=== PATIENT | female | born 1970 | race African-American/Black ===

== ENCOUNTER 2019-09-16 02:03 | Inpatient (IN) | payer MEDICARE, MEDICAID ==
[~2019-09-16] VITALS: Ht 165.1 cm; Wt 77.4 kg
[2019-09-16 02:43] LABS: Basophils # (auto) 0.1 10 ^3/uL (0-0.2); Basophils % (auto) 0.7 % (0.0-2.0); Eosinophils # (auto) 0.1 10 ^3/uL (0-0.8); Eosinophils % (auto) 0.7 % (0.0-7.0); Hematocrit 45.5 % (36.0-46.0); Hemoglobin 14.9 g/dL (12.2-16.2); Lymphocytes # (auto) 3.8 10 ^3/uL (0.4-5.4); Mean Corpuscular Hemoglobin 26.1 pg (28.0-32.0); Mean Corpuscular Hgb Conc. 32.7 g/dL (32.0-36.0); Mean Corpuscular Volume 79.7 fL (80.0-100.0); Monocytes # (auto) 0.6 10 ^3/uL (0-1.3); Monocytes % (auto) 5.8 % (0.0-12.0); Neutrophils # (auto) 5.3 10 ^3/uL (1.6-8.6); Neutrophils % (auto) 53.8 % (37.0-80.0); Nucleated Red Blood Cells % 0.1 %; Platelet Count (auto) 265 10^3/uL (140-450); Red Blood Cells 5.71 10^6/uL (4.0-5.20); Red Cell Distribution Width 14.1 % (11.8-14.3); White Blood Cell 9.8 10^3/uL (4.4-10.8)
[2019-09-16 03:01] LABS: Alanine Aminotransferase 29 U/L (13-56); Anion Gap 8 (5-15); Aspartate Aminotransferase 19 U/L (15-37); BUN/Creatinine Ratio 18.2; Blood Urea Nitrogen 14 mg/dL (7-18); Calcium 8.9 mg/dL (8.5-10.1); Carbon Dioxide 23 mmol/L (21-32); Chloride 105 mmol/L (98-107); GFR African American 102 mL/min; GFR Non-African American 85 mL/min; Glucose 84 mg/dL (74-106); Potassium 3.6 mmol/L (3.5-5.1); Sodium 136 mmol/L (136-145)
[2019-09-16 03:06] LABS: Alkaline Phosphatase 145 U/L (45-117); Bilirubin, Total 0.3 mg/dL (0.2-1.0); Total Protein 7.5 g/dL (6.4-8.2)
[2019-09-16 03:20] LABS: Urine WBC None Seen /hpf (0 - 5)
[2019-09-16 03:48] LABS: Urine Bacteria FEW /hpf (None Seen); Urine Blood Negative /uL (Negative); Urine Specific Gravity 1.008 (1.001-1.035)
[2019-09-16] MEDS ORDERED: ONDANSETRON HCL 4 MG/2 ML VIAL IV ONE (05:00)
[2019-09-16] MEDS ORDERED: MORPHINE SULFATE 4 MG/ML SYR/VIAL IV ONE (05:00)
[2019-09-16] MEDS ORDERED: LORazepam 0.5 MG TAB PO ONE (06:30)
[2019-09-16] MEDS ORDERED: NITROGLYCERIN 0.4 MG SL TAB SL PRN (07:00)
[2019-09-16] MEDS ORDERED: MORPHINE SULF INJ 2 MG/ML SYRINGE 1ML IV PRN (07:00)
[2019-09-16] MEDS ORDERED: TEMAZEPAM 15 MG CAP PO PRN (07:00)
[2019-09-16] MEDS ORDERED: ONDANSETRON HCL 4 MG/2 ML VIAL IV PRN (07:00)
[2019-09-16 07:09] LABS: Hematocrit 43.9 % (36.0-46.0); Hemoglobin 14.5 g/dL (12.2-16.2)
--- NOTE | 2019-09-16 09:03 | NUR ---
PT ADMITTED TO FLOOR VIA WHEEL CHAIR FROM E.R., NO DISTRESS NOTED. PT REPORTS NO CHEST PAIN AT THIS TIME, SHE REPORTS SHE RECEIVED PAIN MED IN E.R. SEIZURE PRECAUTIONS IN PLACE.BED IN LOWEST LOCKED POSITION, SIDE RAILS UP X 2. VITALS: 97.7, 98% ON RA, HR 73, RR 18, 105/70.
[2019-09-16] MEDS: ASPirin 81 mg TAB PO SCH (10:14)
[2019-09-16] MEDS: PHENYTOIN SODIUM 100 MG CAP PO SCH ×2 (10:14→21:56)
[2019-09-16] MEDS: TOPIRAMATE 25 MG TAB PO SCH ×2 (10:14→21:57)
[2019-09-16] MEDS: FAMOTIDINE 20 MG TAB PO SCH ×2 (10:14→21:57)
[2019-09-16 11:40] LABS: Cholesterol 156 mg/dL (< 200); HDL Cholesterol 79 mg/dL (40-59); LDL Cholesterol 45 mg/dL (< 100); Triglycerides 223 mg/dL (< 150)
--- NOTE | 2019-09-16 11:59 | NUR ---
PT REPORTING 11/24 CHEST PAIN RADIATING TO LEFT ARM. DR MORGAN CAME AND SAW PATIENT. PT REPORTS SHE IS BLEEDING FROM HER RECTUM AND DR MORGAN REPORTS HE WILL HAVE GI LOOK AT HER. PT REPORTS SHE WANTS PAIN MEDS. NOTIFIED DR MORGAN PT NEEDS PAIN MEDS ON BOARD, AWARE. NEW ORDERS FOR ECG, PT REFUSING VITALS. PT BECAME UPSET WHEN NOTIFIED AN ORDER IS NEEDED FOR MORE PAIN MEDICATION AND DR MORGAN IS AWARE. SHE REPORTS, "NO ONES TELLING ME WHAT'S GOING ON!" DR MORGAN JUST SPOKE WITH PATIENT AND EXPLAINED POC. PT UPSET AND REPORTS SHE WANTS PAIN MEDS, SHE WILL TAKE TYLENOL IF AVAILABLE, WILL CHECK TO SEE IF TYLENOL AVAILABLE. PT REPORTS SHE WANTS NEW NURSE, CHARGE AND DR MORGAN AWARE. Addendum: 09/16/19 at 1216 by SERGE SALDIVAR RN DR MORGAN SAW PATIENT AND WAS NOTIFIED OF CHEST PAIN.
--- NOTE | 2019-09-16 12:17 | NUR ---
BRANDON ASENCIO WITNESSED INCIDENT WITH PATIENT. PT REPORTS I WAS ARGUING WITH HER. PT EDUCATED AN ORDER IS NEEDED FOR PAIN MED, E.R. GAVE THE MORPHINE Q 30 AND NO OTHER MORPHINE AVAILABLE. PT YELLING AT SENIOR CHEMICAL PROCESS ENGINEER AT NURSING STATION, PT REPORTS SENIOR CHEMICAL PROCESS ENGINEER IS BEING, "SARCASTIC!" BRANDON WALKED AWAY, SECURITY WAS CALLED. SECURITY REPORTS PT WAS THE SAME IN THE E.R.. REPORT GIVEN TO TIMOTEO CERRATO RN NOTIFIED PT WANTS TYLENOL, AND VITALS AND ECG STILL NEED TO BE DONE STAT, PT REFUSED PREVIOUSLY.
--- NOTE | 2019-09-16 12:20 | NUR ---
Assumed care of patient from [facility]. Patient will be medicated, vitals and EKG will be done.
--- NOTE | 2019-09-16 12:30 | NUR ---
PT REFUSED VITAL SIGNS.
--- NOTE | 2019-09-16 12:30 | NUR ---
Patient complaining of incident with previous RN. Notified her and gave her paper to document her concerns to be given to the nursery worker.
[2019-09-16 12:32] LABS: Amphetamine Screen, Urine NEGATIVE (NEGATIVE); Barbiturate Scree,Urine NEGATIVE (NEGATIVE); Benzodiazephine Screen, Urine NEGATIVE (NEGATIVE); Cannabinoid Screen, Urine NEGATIVE (NEGATIVE); Cocaine Screen, Urine POSITIVE (NEGATIVE); Opiate Scree,Urine NEGATIVE (NEGATIVE); Phencyclidine Screen, Urine NEGATIVE (NEGATIVE)
--- NOTE | 2019-09-16 12:35 | NUR ---
GI Dr. Vargas rounded on patient.
[2019-09-16] MEDS: ACETAMINOPHEN 325 MG TAB PO PRN ×2 (12:36→18:51)
[2019-09-16 13:00] VITALS: BP 110/63
[2019-09-16 17:00] VITALS: BP 117/84
--- NOTE | 2019-09-16 19:10 | NUR ---
Opening Shift Note Assumed care of patient, awake, alert and oriented x4, on room air with even and unlabored respirations, no S/S of distress/SOB or pain. Patient able to ambulate with even and steady gait, able to turn independently in bed, bed in lowest locked position, side rails up x2, and call light within reach. Instructed on POC and to call for assist PRN, will continue to monitor for changes Q1hr and PRN.
--- NOTE | 2019-09-16 19:30 | NUR ---
Care endorsed to night manager RN. Patient in bed uncomplaining.
[2019-09-16 22:00] VITALS: BP 119/72
[2019-09-16] MEDS ORDERED: ATORVASTATIN 20 MG TAB PO SCH (22:00)
[2019-09-17] MEDS: ACETAMINOPHEN 325 MG TAB PO PRN ×2 (03:18→09:27)
[2019-09-17 05:00] VITALS: BP 118/75
[2019-09-17 05:28] LABS: Basophils # (auto) 0 10 ^3/uL (0-0.2); Eosinophils # (auto) 0.1 10 ^3/uL (0-0.8); Neutrophils # (auto) 5.4 10 ^3/uL (1.6-8.6); Nucleated Red Blood Cells % 0.3 %
[2019-09-17 05:31] LABS: Basophils % (auto) 0.5 % (0.0-2.0); Eosinophils % (auto) 0.7 % (0.0-7.0); Hematocrit 42.6 % (36.0-46.0); Lymphocytes # (auto) 2.2 10 ^3/uL (0.4-5.4); Lymphocytes % (auto) 27.6 % (10.0-50.0); Mean Corpuscular Hemoglobin 26.5 pg (28.0-32.0); Mean Corpuscular Hgb Conc. 32.9 g/dL (32.0-36.0); Mean Corpuscular Volume 80.7 fL (80.0-100.0); Monocytes # (auto) 0.4 10 ^3/uL (0-1.3); Monocytes % (auto) 5.2 % (0.0-12.0); Platelet Count (auto) 205 10^3/uL (140-450); Red Blood Cells 5.28 10^6/uL (4.0-5.20); White Blood Cell 8.1 10^3/uL (4.4-10.8)
[2019-09-17 05:42] LABS: BUN/Creatinine Ratio 26.8; Calcium 8.5 mg/dL (8.5-10.1); Potassium 3.1 mmol/L (3.5-5.1)
--- NOTE | 2019-09-17 07:30 | NUR ---
RECEIVED REPORT FROM NIGHT NURSE. PATIENT SLEEPING IN BED, NO DISTRESS NOTED. WILL CONTINUE TO MONITOR.
[2019-09-17 09:00] VITALS: BP 118/60
[2019-09-17] MEDS: PHENYTOIN SODIUM 100 MG CAP PO SCH (09:26)
[2019-09-17] MEDS: TOPIRAMATE 25 MG TAB PO SCH (09:27)
[2019-09-17] MEDS: ASPirin 81 mg TAB PO SCH (09:27)
[2019-09-17] MEDS: FAMOTIDINE 20 MG TAB PO SCH (09:27)
[2019-09-17] MEDS ORDERED: POTASSIUM CHL 20 Meq TABLET PO ONE (12:30)
[2019-09-17 13:00] VITALS: BP 125/69
--- NOTE | 2019-09-17 15:22 | NUR ---
Discharge instructions given as ordered. Encourage to follow up with PMD as instructed. All questions and concerns addressed. Patient verbalized understanding. Medication reconciliation form completed and copy given to patient. IV removed with catheter intact, pressure dressing applied. Telemetry unit returned to ICU. Patient taken to LOBBY TO WAIT FOR RIDE, with all personal belongings, accompanied by staff. No distress noted at time of departure.
== END 2019-09-17 15:14 | disposition home or self-care (01) | DRG 918 ==
LOC: ER 02:06 → TELE 02:07 → TELE-WESTW 08:50
PROVIDERS: ADMIT Nurse Practitioner; ATTEND Internal Medicine
DX: T40.5X1A Poisoning by cocaine, accidental (unintentional), initial encounter (principal); I20.0 Unstable angina; K62.5 Hemorrhage of anus and rectum; E78.5 Hyperlipidemia, unspecified; F14.10 Cocaine abuse, uncomplicated; G40.909 Epilepsy, unspecified, not intractable, without status epilepticus; I08.0 Rheumatic disorders of both mitral and aortic valves; N20.0 Calculus of kidney; Y92.89 Other specified places as the place of occurrence of the external cause; Z72.0 Tobacco use; Z71.51 Drug abuse counseling and surveillance of drug abuser
CPT/HCPCS: 36415; 71045; 74176; 80048; 80053; 80061; 80307; 81001; 83036; 84443; 84484; 85014; 85018; 85025; 93005; 93306; 96374; 96375; 96376; G0378; J2405